=== PATIENT | female | born 1970 | race Caucasian/White ===

== ENCOUNTER → 2017-09-01 | Day surgery (SDC) | payer OTHER ==
[~2017-09-01] VITALS: Ht 157.5 cm; Wt 56.7 kg
[~2017-09-01] MED LIST: CIPR-255 PO; SODIUM FERRIC GLUCONATE IV 125 MG in SODIUM CHLORIDE 0.9% 100ML 100 ML IV SCH
[2017-09-01 13:56] VITALS: BP 102/63; PULSE 77; TEMP 36.7; O2SAT 100; Ht 157.5 cm; Wt 56.7 kg
[2017-09-01 15:08] VITALS: BP 101/65; PULSE 67; TEMP 36.5
--- NOTE | 2017-09-15 13:05 | EDITING REQUIRED CODING QUERY ---
TREATMENT RENDERED WITHOUT A DIAGNOSIS To promote full compliance with coding requirements relating to patient care, physician participation is requested in all cases of bulk pigment reducer uncertainty. Please assist us with the question(s) below: Coding Question: The patient is receiving IV FERRLECIT, as noted in the ORDER HISTORY of the record. Please document the diagnosis that is being addressed by the medication/treatment. Provider Response: Thank you Claudia Davis
--- NOTE | 2017-10-02 10:15 | CODING QUERY NO DIAGNOSIS ---
TREATMENT RENDERED WITHOUT A DIAGNOSIS To promote full compliance with coding requirements relating to patient care, physician participation is requested in all cases of digital measurement advisor uncertainty. Please assist us with providing a diagnosis/symptom for the test(s) below: A diagnosis/symptom was not documented on your Order. A valid diagnosis/symptom is required to bill all insurances. Please remember that we are unable to code a diagnosis of rule out, probable, possible, questionable, or suspected. Tests/Procedure(s) that require a diagnosis: * IV FERRLECIT DIAGNOSIS: * DOS: 09/01/17 Provider Signature: Date: Thank you Claudia Davis Health Information Management Once completed, please kindly fax back to [phone] For questions please call [phone]
== END | disposition home or self-care (01) ==
LOC: C.MTU 13:40
PROVIDERS: ATTEND Family Medicine
DX: D50.9 Iron deficiency anemia, unspecified (principal)

== ENCOUNTER → 2018-04-19 | Outpatient (CLI) | payer OTHER ==
[~2018-04-19] MED LIST changes: -SODIUM FERRIC GLUCONATE IV 125 MG in SODIUM CHLORIDE 0.9% 100ML 100 ML IV SCH
[2018-04-19 10:56] LABS: BASO % 0.4 %; BASO ABS # 0.02 K/uL (0-0.2); EOS % 2.6 %; EOS ABS # 0.13 K/uL (0-0.5); HEMATOCRIT 42.7 % (37-47); HEMOGLOBIN 14.1 g/dL (12.0-16.0); LYMPH % 18.3 %; LYMPH ABS # 0.93 K/uL (1.2-3.4); MEAN CELL VOLUME 91.6 fL (80-100); MEAN CORPUSCULAR HEMOGLOBIN 30.3 pg (25-34); MEAN PLATELET VOLUME 9.8 fL (7.4-10.4); MONO % 5.9 %; NEUT % 72.8 %; PLATELET COUNT 244 K/uL (130-400); RED CELL DISTRIBUTION WIDTH CV 13.5 % (11.5-14.5); RED CELL DISTRIBUTION WIDTH SD 44.8 fL (36.4-46.3); WHITE BLOOD COUNT 5.08 K/uL (4.8-10.8)
== END | disposition home or self-care (01) ==
LOC: C.LAB1850 09:57
PROVIDERS: ATTEND Obstetrics & Gynecology
DX: N92.1 Excessive and frequent menstruation with irregular cycle (principal)